=== PATIENT | male | born 1960 | race Caucasian/White ===

== ENCOUNTER 2020-06-09 10:32 | Emergency (ER) | payer BC, OTHER ==
[2020-06-09 10:47] VITALS: PULSE 67; O2SAT 96
--- NOTE | 2020-06-09 10:59 | ERPHSYRPT ---
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 was bleeding after injury but has quit with direct pressure by pt. not bleeding at all on arrival. denies pain, no blood thinners or LOC. measured 5 cm lac to top of head Physician History: Patient is a 59-year-old male presents to our ED for evaluation of laceration to the top of his head. Patient was at work moving a large grill strapped with belts. 1 of the straps came loose and scraped patient's head. No LOC. Patient has a 5.5 cm laceration to the crown of his head. No neurologic complaints. Patient is not on blood thinners. Patient declined a CAT scan states that he feels completely fine other than the scalp laceration. No neck pain. No trauma otherwise. Patient voiced no other complaints concerns at this time. Patient declined pain medication. Patient voiced no other complaints or concerns at this time. Timing/Duration: today Severity: moderate Modifying Factors: Improves With: nothing Associated Symptoms: No nausea, No vomiting, No shortness of breath, No headaches, No syncope, No seizure, No weakness Allergies/Adverse Reactions: venom-honey bee [bee venom (honey bee)] Allergy (Severe, Verified 03/24/15 03:22) Tightness of Throat Penicillins Allergy (Verified 03/24/15 01:04) Home Medications: Atorvastatin Calcium [Lipitor] 40 mg PO QHS 03/24/15 [History] Carvedilol 12.5 mg [Coreg 12.5 mg] 12.5 mg PO BID 03/24/15 [History] Lisinopril 10 mg [Zestril 10 MG] 10 mg PO DAILY 03/24/15 [History] Loratadine 10 mg [Claritin 10 mg] 10 mg PO DAILY 03/24/15 [History] Hx Tetanus, Diphtheria Vaccination/Date Given: No Hx Influenza Vaccination/Date Given: Yes Hx Pneumococcal Vaccination/Date Given: Yes Immunizations Up to Date: Yes Travel Risk - International Travel Have you traveled outside of the country in past 3 weeks: No - Coronavirus Screening Are you exhibiting any of the following symptoms?: No Close contact with a COVID-19 positive Pt in past 14-21 Days: No - Review of Systems Constitutional: No Symptoms, No Fever, No Chills Eyes: No Symptoms Ears, Nose, & Throat: No Symptoms Respiratory: No Symptoms, No Cough, No Dyspnea Cardiac: No Symptoms, No Chest Pain, No Edema, No Syncope Abdominal/Gastrointestinal: No Symptoms, No Abdominal Pain, No Nausea, No Vomiting, No Diarrhea Genitourinary Symptoms: No Symptoms, No Dysuria Musculoskeletal: No Symptoms, No Back Pain, No Neck Pain Skin: No Symptoms, No Rash Neurological: No Symptoms, No Dizziness, No Focal Weakness, No Sensory Changes Psychological: No Symptoms Endocrine: No Symptoms Hematologic/Lymphatic: No Symptoms Immunological/Allergic: No Symptoms All Other Systems: Reviewed and Negative - Past Medical History Pertinent Past Medical History: Yes Neurological History: No Pertinent History ENT History: No Pertinent History Cardiac History: Hypertension, Myocardial Infarction (MD) Respiratory History: No Pertinent History Endocrine Medical History: No Pertinent History Musculoskeletal History: No Pertinent History GI Medical History: No Pertinent History History: No Pertinent History Psycho-Social History: No Pertinent History Male Reproductive Disorders: No Pertinent History Other Medical History: hx of rheumatic fever - Past Surgical History Past Surgical History: Yes Neuro Surgical History: No Pertinent History Cardiac: Cardiac Catheterization, Cardiac Stent Respiratory: No Pertinent History Gastrointestinal: No Pertinent History Genitourinary: No Pertinent History Musculoskeletal: No Pertinent History Male Surgical History: No Pertinent History Other Surgical History: cyst removal from hand - Social History Smoking Status: Never smoker Exposure to second hand smoke: No Drug Use: none Patient Lives Alone: No - Nursing Vital Signs Nursing Vital Signs: Initial Vital Signs Temperature 98.0 F 06/09/20 10:40 Pulse Rate 67 06/09/20 10:40 Respiratory Rate 16 06/09/20 10:40 O2 Sat by Pulse Oximetry 96 06/09/20 10:40 Pain Scale Pain Intensity 0 - Physical Exam General Appearance: no apparent distress, alert Eye Exam: PERRL/EOMI, eyes nml inspection Ears, Nose, Throat Exam: normal ENT inspection, TMs normal, pharynx normal, moist mucous membranes Neck Exam: normal inspection, non-tender, supple, full range of motion Respiratory Exam: normal breath sounds, lungs clear, No respiratory distress Cardiovascular Exam: regular rate/rhythm, normal heart sounds, normal peripheral pulses Gastrointestinal/Abdomen Exam: soft, normal bowel sounds, No tenderness, No mass Back Exam: normal inspection, normal range of motion, No CVA tenderness, No vertebral tenderness Extremity Exam: normal inspection, normal range of motion, pelvis stable Neurologic Exam: alert, oriented x 3, cooperative, normal mood/affect, nml cerebellar function, nml station & gait, sensation nml, No motor deficits Skin Exam: normal color, warm, dry, other (5.5 cm relatively superficial laceration to the crown of patient's head.), No rash Lymphatic Exam: No adenopathy SpO2 Interpretation: normal SpO2: 96 O2 Delivery: Room Air Procedures - Laceration/Wound Repair Head Wound Location: head Wound Length (cm): 5.5 Wound's Depth, Shape: superficial, linear Wound Explored: clean Irrigated: Yes Hibiclens Prep: Yes Wound Debrided: No debridement required Wound Repaired With: Muldraugh Number of Sutures: 8 Layer Closure?: No Sterile Dressing Applied?: No Splint Applied?: No Sling Applied?: No - Course Nursing assessment & vital signs reviewed: Yes - Progress Progress: improved Progress Note: 06/09/20 11:02 Patient reassessed. He feels well. Pain well controlled. 8 ariadne placed. Patient declined local analgesia. Patient declined pain medication. No complications during procedure. Patient agrees to follow-up with his primary care doctor within 48 hours for reevaluation. Muldraugh may be removed in 1 week. Counseled pt/family regarding: diagnosis, need for follow-up - Departure Departure Disposition: Home Clinical Impression: Scalp laceration Condition: Stable Critical Care Time: No Referrals: AURELIO GALLEGOS MD [Primary Care Provider] - Instructions: Laceration Repair With Muldraugh (DC) Additional Instructions: Discharge/Care Plan CLIFTON JRMALIKA DALEY was seen on 06/09/20 in the Emergency Room. The patient was counseled regarding Diagnosis,Lab results, Imaging studies, need for follow up and when to return to the Emergency Room. Prescriptions given: Discharge Note I have spoken with the patient and/or caregivers. I have explained the patient's condition, diagnosis and treatment plan based on the information available to me at this time. I have answered the patient's and/or caregiver's questions and addressed any concerns. The patient and/or caregivers have as good understanding of the patient's diagnosis, condition and treatment plan as can be expected at this point. The vital signs have been stable. The patient's condition is stable and appropriate for discharge from the emergency department. The patient will pursue further outpatient evaluation with the primary care physician or other designated or consulting physician as outlined in the discharge instructions. The patient and/or caregivers are agreeable to this plan of care and follow-up instructions have been explained in detail. The patient and/or caregivers have received these instruction. The patient/and or caregivers are aware that any significant change in condition or worsening of symptoms should prompt an immediate return to this or the closest emergency department or call 911.
== END 2020-06-09 11:03 | disposition home or self-care (01) ==
LOC: ED 10:32
DX: S01.01XA Laceration without foreign body of scalp, initial encounter (principal); W22.8XXA Striking against or struck by other objects, initial encounter; Y93.89 Activity, other specified; Y92.488 Other paved roadways as the place of occurrence of the external cause; Y99.0 Civilian activity done for income or pay; Z79.899 Other long term (current) drug therapy
CPT/HCPCS: 12004; 99283